=== PATIENT | female | born 1985 | race African-American/Black ===

== ENCOUNTER 2018-02-03 14:00 | Emergency (ER) | payer MEDICAID ==
[~2018-02-03] VITALS: Ht 172.7 cm; Wt 90.0 kg
[2018-02-03] MEDS ORDERED: FOLI-43 PO (14:33)
[2018-02-03 15:08] LABS: BASOPHILS % 0.3 % (0.0-2.0); EOSINOPHILS % 0.4 % (0.0-5.0); HEMATOCRIT. 34.6 % (36.0-48.0); HEMOGLOBIN. 11.3 g/dL (12.0-16.0); LYMPHOCYTES % 17.6 % (20.0-50.0); MEAN CORPUSCULAR HEMOGLOBIN 24.3 pg (28.0-32.0); MEAN CORPUSCULAR VOLUME 74.4 fL (81.0-99.0); MEAN PLATELET VOLUME 8.3 fl (7.4-10.4); MONOCYTES % 7.2 % (2.0-8.0); NEUTROPHILS % 74.5 % (40.0-76.0); PLATELET 282 x1000/uL (130-400); RED BLOOD CELL COUNT 4.65 mill/uL (4.2-5.4); RED CELL DISTRIBUTION WIDTH 15.3 % (11.6-14.6)
[2018-02-03 15:10] LABS: CHLORIDE 104 mEq/L (98-107)
[2018-02-03] MEDS ORDERED: ACETAMINOPHEN 325MG TABLET PO ONE (15:15)
[2018-02-03 15:18] LABS: CLARITY URINE TURBID (CLEAR); COLOR URINE DARK YELLOW (YELLOW); KETONES URINE TRACE (NEGATIVE); LEUKOCYTE ESTERASE URINE 2+ (NEGATIVE); NITRITE URINE NEGATIVE (NEGATIVE); OCCULT BLOOD URINE 2+ (NEGATIVE); PH URINE 5.5 (4.5-8.0); PROTEIN URINE TRACE (NEGATIVE); SPECIFIC GRAVITY URINE 1.029 (1.005-1.030)
[2018-02-03 15:33] LABS: B-HCG QUANTITATIVE 68012 mIU/mL (<3)
[2018-02-03 19:16] VITALS: BP 112/78
== END 2018-02-03 19:18 | disposition home or self-care (01) ==
LOC: ER 14:37
DX: O00.00 Abdominal pregnancy without intrauterine pregnancy (principal); O23.12 Infections of bladder in pregnancy, second trimester; O20.0 Threatened abortion; Z3A.17 17 weeks gestation of pregnancy; Z90.49 Acquired absence of other specified parts of digestive tract
CPT/HCPCS: 36415; 76815; 80053; 81003; 81025; 84702; 85025; 86850; 86900; 86901; 87086; 99285; Z7610

== ENCOUNTER 2018-05-08 11:08 | Observation (INO) | payer MEDICAID ==
[~2018-05-08] VITALS: Ht 172.7 cm; Wt 95.7 kg
[~2018-05-08 11:08] MED LIST: FERR325T6 PO; FOLI-43 PO; PNV1TABL76 PO
== END 2018-05-08 16:30 | disposition home or self-care (01) ==
LOC: L&D 11:08
PROVIDERS: ADMIT Obstetrics & Gynecology; ATTEND Obstetrics & Gynecology
DX: O26.893 Other specified pregnancy related conditions, third trimester (principal); R10.9 Unspecified abdominal pain; R10.2 Pelvic and perineal pain; W19.XXXA Unspecified fall, initial encounter; Y93.89 Activity, other specified; Y92.89 Other specified places as the place of occurrence of the external cause; Y99.8 Other external cause status; Z3A.31 31 weeks gestation of pregnancy
CPT/HCPCS: 76805; 76818; 99281; G0378